=== PATIENT | male | born 1945 | race Caucasian/White ===

== ENCOUNTER → 2019-08-13 10:38 | Outpatient (CLI) | payer MEDICARE, SELFPAY ==
--- NOTE | 2019-08-13 10:43 | XR_ITS ---
PROCEDURE: XR HIP LT 2-3V W/PELVIS CLINICAL INDICATION: LT HIP PAIN Left hip pain COMPARISON: No exams were available for comparison FINDINGS: No acute fracture or dislocation. There are mild osteoarthritic changes of the hips and there is degenerative disc disease in the lower lumbar spine. There is generalized vascular calcification. AP and abduction views of the left hip show mild osteoarthritis. No acute fracture or dislocation IMPRESSION: Mild osteoarthritis of the hips Dictated by: Jian Bravo MD 08/13/2019 12:18 Electronically signed by Jian Bravo MD in [place] 08/13/2019 12:18
== END ==
PROVIDERS: PCP Family Medicine; Visit Provider Family Medicine
DX: M25.552 Pain in left hip (principal)
CPT/HCPCS: 73502

== ENCOUNTER → 2021-03-15 12:13 | Outpatient (CLI) | payer MEDICARE, OTHER, SELFPAY | PROVIDERS: PCP Family Medicine; Visit Provider Nurse Practitioner | DX: U07.1 COVID-19 (principal) | CPT/HCPCS: C9803; U0003; U0005 ==

== ENCOUNTER 2021-10-21 10:43 | Emergency (ER) | payer OTHER, SELFPAY ==
[2021-10-21 11:00] VITALS: BP 131/74; PULSE 81; RESP 16; TEMP 36.8; O2SAT 96; BMI 28.1
--- NOTE | 2021-10-21 11:12 | HMH.EDUTC ---
[place] Disposition Clinical Impression: Bug bite Qualifiers: Encounter type: initial encounter Qualified Code(s): W57.XXXA - Bitten or stung by nonvenomous insect and other nonvenomous arthropods, initial encounter Disposition: Home, Self-Care Condition on Discharge: Good Instructions: DI for Insect Bites and Stings Additional Instructions: monitor for fever if no improvement return or be seen in ed Prescriptions: Mupirocin [Bactroban 2% Ointment 22gm tube] 1 applicatio TP BID 5 Days #22 gm Transmission Status: Pending to [id number] cephALEXin [Cephalexin 500mg Tab] 500 mg PO BID 7 Days #14 tab Transmission Status: Pending to [id number] Referrals: Cordell Pozo MD [Primary Care Provider] - Time of Disposition: 11:23 Medical Decision Making - [place] Inquiry Pt receiving controlled substance: No Vital Signs: 10/21/21 11:00 Temperature 98.2 F Temperature Source Oral Pulse Rate [Left Brachial] 81 Respiratory Rate 16 Blood Pressure [Left Arm] 131/74 Blood Pressure Mean [Left Arm] 93 Blood Pressure Source [Left Arm] Automatic Cuff Blood Pressure Position [Left Arm] Sitting 02 Sat by Pulse Oximetry 96 Oxygen Delivery Method Room Air [place] HPI - General Chief complaint: Urgent Treatment Center Stated complaint: bug bites Time Seen by Provider: 10/21/21 11:12 Mode of Arrival: Ambulatory Source of Information: Patient Limitations: No Limitations Description of Symptoms (Recalled from Triage Doc. by RN): PATIENT C/O BUG BITES TO BILATERAL LEGS X 4 DAYS HEENT Symptoms (Recalled from RN notes): No Resp Symptoms (Recalled from RN notes): No Skin Symptoms (Recalled from RN notes): Yes MS Symptoms (Recalled from RN notes): No Functional Status (Recalled from RN notes): WNL - History of Present Illness Provider Complaint: 76 yr old male presnets for 5 bug bites, 2 to both lower legs and one to chest. pt states he has been out working in the yard and worries he might have lyme disease. pt states he has not removed any ticks or felt anything bite him - Related Data Home Medications Medication Instructions Recorded Confirmed ascorbic acid (vitamin C) 1,000 mg 1 g PO Q6H 08/19/19 08/19/19 tablet aspirin 81 mg tablet,delayed 81 mg PO DAILY 08/19/19 08/19/19 release cholecalciferol (vitamin D3) 125 125 mcg PO DAILY 08/19/19 08/19/19 mcg (5,000 unit) capsule finasteride 5 mg tablet 5 mg PO DAILY 08/19/19 08/19/19 lisinopril 20 mg tablet 20 mg PO DAILY 08/19/19 08/19/19 simvastatin 40 mg tablet 40 mg PO DAILY 08/19/19 08/19/19 tamsulosin 0.4 mg capsule 0.4 mg PO DAILY 08/19/19 08/19/19 Previous Rx's Medication Instructions Recorded Mupirocin [Bactroban 2% Ointment 1 applicatio TP BID 5 Days #22 gm 10/21/21 22gm tube] cephALEXin [Cephalexin 500mg Tab] 500 mg PO BID 7 Days #14 tab 10/21/21 Allergies Allergy/AdvReac Type Severity Reaction Status Date / Time No Known Allergies Allergy Verified 08/19/19 09:16 - Worker's Comp Is this a Worker's Comp case?: No [facility] History - Hepatitis A Screen Attestation statement:: This patient has been screened for Hepatitis A risk factors. I have reviewed the patient's past medical history: Yes Medical History: Reports:: Hypertension Other Medical History: Reports: Arthritis Laterality Cases: Bilateral: Tonsillectomy Other Surgeries: Yes: Appendectomy, Colonoscopy - Social History Smoking Status: Never smoker Alcohol Intake: never Occupational Status: retired Family Hx:: No significant family history ROS Obtained: Yes Systems reviewed as appropriate & no additional complaints - Constitutional Constitutional: Reports system reviewed and no additional complaints, except as docu, Denies fever(s) - Eyes Eyes: Reports system reviewed and no additional complaints, except as docu, Denies dry eyes - ENT Ears, Nose, Mouth, and Throat: Reports system reviewed and no additional complaints, except as docu, Den
[2021-10-21 11:22] VITALS: BP 131/74; PULSE 81; RESP 16; TEMP 36.8; O2SAT 96
== END 2021-10-21 11:26 | disposition home or self-care (01) ==
PROVIDERS: Emergency Provider Nurse Practitioner Family; PCP Family Medicine
DX: S80.862A Insect bite (nonvenomous), left lower leg, initial encounter (principal); S80.861A Insect bite (nonvenomous), right lower leg, initial encounter; W57.XXXA Bitten or stung by nonvenomous insect and other nonvenomous arthropods, initial encounter; I10 Essential (primary) hypertension
CPT/HCPCS: 99212; G0463

== ENCOUNTER 2022-02-26 16:09 | Emergency (ER) | payer OTHER, SELFPAY ==
[2022-02-26 16:09] VITALS: BP 147/75; PULSE 74; RESP 16; TEMP 36.8; O2SAT 98; BMI 28.0
--- NOTE | 2022-02-26 17:04 | HMH.EDGENADL ---
Discharge Plan Disposition Patient Disposition: Home, Self-Care Condition: Good Chief Complaint: Weakness Prescriptions Prescriptions: No Action simvastatin 40 mg tablet 40 mg PO DAILY lisinopril 20 mg tablet 20 mg PO DAILY finasteride 5 mg tablet 5 mg PO DAILY tamsulosin 0.4 mg capsule 0.4 mg PO DAILY aspirin [Adult Aspirin Regimen] 81 mg tablet,delayed release (DR/EC) 81 mg PO DAILY cholecalciferol (vitamin D3) 125 mcg (5,000 unit) capsule 125 mcg PO DAILY ascorbic acid (vitamin C) 1,000 mg tablet 1 g PO Q6H cephalexin 500 MG tablet 500 mg PO BID 7 Days Qty: 14 0RF mupirocin 22 GM ointment 1 applicatio TP BID 5 Days Qty: 22 0RF Referrals Follow up/Referrals: Cordell Pozo MD [Primary Care Provider] - See instructions Activity Restrictions/Add. Instructions Additional Instructions/Restrictions: [facility] and [facility]. If you have any new or worsening symptoms please return the emergency department. Clinical Impressions Clinical Impression: Acute cervical myofascial strain Instructions Patient Instructions: DI for Cervical Muscle Strain Discharge ED Provider: Reymundo Best Adult HPI General Chief complaint: Weakness Stated complaint: numbness in neck Time Seen by Provider: 02/26/22 16:20 Mode of Arrival: Ambulatory Limitations: No Limitations Description of Symptoms (Recalled from ER Triage Doc. by RN): pt advises he had knee surgery a couple of weeks ago and today while he doing therapy he experienced some numbness in the left side of his neck. Denies any other symptoms at this time, no deficits were noted during inital assessment. MD at bedside History of Present Illness HPI narrative: 76-year-old man who presents with concern for mini stroke stating that while doing PT exercises today. States that he had temporary tingling paresthetic numbness along the lateral neck to the base of the ear that has resolved. Denies headache changes in vision dizziness chest pain shortness of breath or peripheral systemic symptoms. No difficulty speaking or swallowing. He has taken 2 aspirin today. Related Data Home Medications Medication Instructions Recorded Confirmed ascorbic acid (vitamin C) 1,000 mg 1 g PO Q6H 08/19/19 08/19/19 tablet aspirin 81 mg tablet,delayed 81 mg PO DAILY 08/19/19 08/19/19 release (Adult Aspirin Regimen) cholecalciferol (vitamin D3) 125 125 mcg PO DAILY 08/19/19 08/19/19 mcg (5,000 unit) capsule finasteride 5 mg tablet 5 mg PO DAILY 08/19/19 08/19/19 lisinopril 20 mg tablet 20 mg PO DAILY 08/19/19 08/19/19 simvastatin 40 mg tablet 40 mg PO DAILY 08/19/19 08/19/19 tamsulosin 0.4 mg capsule 0.4 mg PO DAILY 08/19/19 08/19/19 Previous Rx's Medication Instructions Recorded cephalexin 500 mg tablet 500 mg PO BID 7 days #14 tabs 10/21/21 mupirocin 2 % topical ointment 1 applicatio topical BID 5 days 10/21/21 ##22 Allergies Allergy/AdvReac Type Severity Reaction Status Date / Time No Known Allergies Allergy Verified 08/19/19 09:16 [facility] Social History Smoking Status: Never smoker alcohol intake: never current occupational status: retired Travel in the last 8 weeks: None ROS Obtained: Yes Systems reviewed as appropriate & no additional complaints except as documented Physical Exam General General appearance: alert and in no apparent distress Head Head exam: atraumatic and normocephalic ENT ENT exam: Present mucous membranes moist Neck Neck exam: Present trachea midline and other (No bruit) Chest Chest inspection: Present normal inspection and symmetric chest wall rise Respiratory Respiratory exam: Absent respiratory distress Cardiovascular Cardiovascular exam: Present regular rate Abdominal Exam Abdominal exam: Absent distention Neurological Exam
--- NOTE | 2022-02-26 17:07 | PC.NURSE ---
[facility]
[2022-02-26 17:24] VITALS: BP 140/72; PULSE 72; RESP 18; TEMP 36.6; O2SAT 99
== END 2022-02-26 17:31 | disposition home or self-care (01) ==
PROVIDERS: Emergency Provider Student in an Organized Health Care Education/Training Program; PCP Family Medicine
DX: R53.1 Weakness (principal); S16.1XXA Strain of muscle, fascia and tendon at neck level, initial encounter; R20.2 Paresthesia of skin; Z79.82 Long term (current) use of aspirin; Z79.899 Other long term (current) drug therapy
CPT/HCPCS: 99282

== ENCOUNTER 2024-02-07 17:36 | Emergency (ER) | payer OTHER, SELFPAY ==
[2024-02-07 17:38] VITALS: BP 156/79; PULSE 99; RESP 20; TEMP 36.8; O2SAT 99; BMI 29.4
--- NOTE | 2024-02-07 18:07 | PC.NURSE ---
Jean Claude [facility] at BS for pt adelaideal
--- NOTE | 2024-02-07 18:12 | XR_ITS ---
PROCEDURE INFORMATION: Exam: XR Chest Exam date and time: 02/07/2024 6:31 PM Age: 78 years old Clinical indication: Shortness of breath; Additional info: Chills and rigors TECHNIQUE: Imaging protocol: Radiologic exam of the chest. Views: 1 view. COMPARISON: No relevant prior studies available. FINDINGS: Lungs: Unremarkable. No consolidation. Pleural spaces: Unremarkable. No pleural effusion. No pneumothorax. Heart/Mediastinum: Unremarkable. No cardiomegaly. Bones/joints: Unremarkable. IMPRESSION: No acute findings.
--- NOTE | 2024-02-07 18:15 | ED_ITS ---
Discharge Plan Disposition Patient Disposition: Home, Self-Care Condition: Good Prescriptions Prescriptions: No Action simvastatin 40 mg tablet 40 mg PO DAILY lisinopril 20 mg tablet 20 mg PO DAILY finasteride 5 mg tablet 5 mg PO DAILY tamsulosin 0.4 mg capsule 0.4 mg PO DAILY aspirin [Adult Aspirin Regimen] 81 mg tablet,delayed release (DR/EC) 81 mg PO DAILY cholecalciferol (vitamin D3) 125 mcg (5,000 unit) capsule 125 mcg PO DAILY ascorbic acid (vitamin C) 1,000 mg tablet 1 g PO Q6H cephalexin 500 MG tablet 500 mg PO BID 7 Days Qty: 14 0RF mupirocin 22 GM ointment 1 applicatio TP BID 5 Days Qty: 22 0RF Referrals Follow up/Referrals: Cordell Pozo MD [Primary Care Provider] - See instructions Terrence Kiran MD [Staff Physician] - See instructions Activity Restrictions/Add. Instructions Additional Instructions/Restrictions: Return to the emergency department for any worsening signs or symptoms, any chest pain shortness of breath, please return to the emergency department. [facility] and tongue and groove machine feeder as directed Clinical Impressions Clinical Impression: Brugada syndrome, Parkinson's disease, Parkinsonian tremor, Chills (without fever) Instructions Patient Instructions: DI for Parkinson Disease Print Language Print Language: Austrian Discharge ED Provider: Les Hooks General Adult HPI <WON Smith - Last Filed: 02/07/24 20:23> General Chief complaint: Recheck/Abnormal Lab/Rx Stated complaint: Shakes, weakness, chills Time Seen by Provider: 02/07/24 17:53 Mode of Arrival: Ambulatory Source of Information: Patient and Spouse Limitations: No Limitations History of Present Illness HPI narrative: 78-year-old male presents emergency department accompanied by his spouse, for a episode of shaking and chills . This started around 3 PM today, patient does have past medical history consistent with Parkinson's disease, is on carbidopa levodopa therapy, however missed his afternoon dose of medication today. He tells me that this episode of shaking is the worst I have ever had , thus prompted his emergency department visit. Patient denies any fever, however at the bedside states that his temperature that was taken this afternoon was 97 ?F , he denies any chest pain shortness of breath nausea vomiting constipation, diarrhea, urinary type symptomatology, denies hematemesis melena, hematochezia, headache, dizziness. Patient has ongoing right upper extremity pill-rolling tremor that coincides with ongoing Parkinson's disease. Other past medical history consistent with hyperlipidemia, hypertension, BPH patient is a former smoker, denies any alcohol or drug use initial triage vitals are grossly unremarkable. Onset (ago): hour(s) Related Data Home Medications ?Medication ?Instructions ?Recorded ?Confirmed ascorbic acid (vitamin C) 1,000 mg 1 g PO Q6H 08/19/19 08/19/19 tablet aspirin 81 mg tablet,delayed 81 mg PO DAILY 08/19/19 08/19/19 release (Adult Aspirin Regimen) cholecalciferol (vitamin D3) 125 125 mcg PO DAILY 08/19/19 08/19/19 mcg (5,000 unit) capsule finasteride 5 mg tablet 5 mg PO DAILY 08/19/19 08/19/19 lisinopril 20 mg tablet 20 mg PO DAILY 08/19/19 08/19/19 simvastatin 40 mg tablet 40 mg PO DAILY 08/19/19 08/19/19 tamsulosin 0.4 mg capsule 0.4 mg PO DAILY 08/19/19 08/19/19 Previous Rx's ?Medication ?Instructions ?Recorded cephalexin 500 mg tablet 500 mg PO BID 7 days #14 tabs 10/21/21 mupirocin 2 % topical ointment 1 applicatio topical BID 5 days 10/21/21 ##22 Allergies Allergy/AdvReac Type Severity Reaction Status Date / Time No Known Allergies Allergy Verified 08/19/19 09:16 [facility] <WON Smith - Last Filed: 02/07/24 20:23> [facility] Disclaimer: The information contained in this section may have been updated after the patient was seen, as this information can be updated by other users. Social History Smoking Status: Former smoker alcohol intake: never current occupational status: retired Travel in the last 8 weeks: None Other Medical History Have you received the Pneumonia Vaccine: Yes <WON Smith - Last Filed: 02/07/24 20:23> ROS Obtained: Yes All systems reviewed & no additional complaints except as documented Physical Exam <WON Smith - Last Filed: 02/07/24 20:23> General General appearance: alert and in no apparent distress Head Head exam: atraumatic and normocephalic Eye Eye exam: Present PERRL and EOMI ENT ENT exam: Present mucous membranes moist Neck Neck exam: Present normal inspection Chest Chest inspection: Present normal inspection and symmetric chest wall rise Respiratory Respiratory exam: Present normal lung sounds bilaterally; Absent respiratory distress Cardiovascular Cardiovascular exam: Present regular rate and normal rhythm Abdominal Exam Abdominal exam: Present soft; Absent tenderness, guarding, rebound or rigidity Extremities Exam Extremities exam: Present normal inspection, joint swelling and other (Patient has some joint swelling, with 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 Screening: Per USPSTF and CDC recommendations, given the prevalence of disease in our region, it is our hospital?s policy to screen for HIV and viral Hepatitis for all patients aged 18 and over and those with ongoing risk factors. Gilberto Inquiry Pt receiving controlled substance: No Vital Signs: 02/07/24 17:38 02/07/24 18:31 02/07/24 19:00 Temperature 98.2 F Temperature Source Oral Pulse Rate 87 85 Pulse Rate [Right] 99 H Respiratory Rate 20 15 17 Blood Pressure 167/96 H 159/79 H Blood Pressure [Right Arm] 156/79 H Blood Pressure Mean 115 Blood Pressure Mean [Right Arm] 104 Blood Pressure Source Blood Pressure Source [Right Arm] Automatic Cuff Blood Pressure Position 02 Sat by Pulse Oximetry 99 94 L 96 Oxygen Delivery Method Room Air Room Air 02/07/24 19:30 02/07/24 20:00 02/07/24 20:29 Temperature 97.9 F Temperature Source Oral Pulse Rate 83 86 82 Pulse Rate [Right] Respiratory Rate 13 15 18 Blood Pressure 147/73 H 142/70 H 142/70 H Blood Pressure [Right Arm] Blood Pressure Mean Blood Pressure Mean [Right Arm] Blood Pressure Source Automatic Cuff Blood Pressure Source [Right Arm] Blood Pressure Position Supine 02 Sat by Pulse Oximetry 96 Oxygen Delivery Method Room Air Lab Data Lab results reviewed: Yes I reviewed the patient's lab results. Lab Results 02/07/24 17:50: WBC 16.0 H, RBC 5.21, Hgb 16.1, Hct 47.5, MCV 91.0, MCH 30.9, MCHC 33.9, RDW 14.2, Plt Count 173, MPV 11.2 H, Neut % (Auto) 88.2 H, Lymph % (Auto) 3.9 L, Boundary % (Auto) 4.8, Eos % (Auto) 2.3, Baso % (Auto) 0.7, Neut # (Auto) 14.1 H, Lymph # (Auto) 0.6 L, Boundary # (Auto) 0.8, Eos # (Auto) 0.4, Baso # (Auto) 0.1, Total Counted 100, Neutrophils % (Manual) 84 H, Lymphocytes % (Manual) 9 L, Monocytes % (Manual) 4, Eosinophils % (Manual) 3, Platelet Estimate Normal, RBC Morphology Normal, PT 10.7, INR 0.95, Sodium 132 L, P otassium 5.2 H, Chloride 101, Carbon Dioxide 21 L, Anion Gap 15.2 H, BUN 19, Creatinine 1.00, Estimated Creat Clear 79, Estimated GFR 72, Est GFR ( Amer) 87, Glucose 91, Calcium 9.2, Magnesium 2.0, Total Bilirubin 1.0, AST 53, ALT 27, Alkaline Phosphatase 96, Total Creatine Kinase 128, Troponin I 0.02, NT-Pro-B Natriuret Pep 119, Total Protein 8.7 H, Albumin 4.8, Globulin 3.9 H, Albumin/Globulin Ratio 1.2 02/07/24 18:22: SARS-CoV-2 (PCR) Not detected, Influenza A Untype (PCR) Not detected, Influenza Type B (PCR) Not detected 02/07/24 20:03: Urine Color Yellow, Urine Appearance Clear, Urine pH 6.0, Ur Specific Monroe 1.025, Urine Protein Negative, Urine Glucose (UA) Negative, Urine Ketones Negative, Urine Blood Negative, Urine Nitrate Negative, Urine Bilirubin Negative, Urine Urobilinogen 1.0, Ur Leukocyte Esterase Negative, Urine RBC 10-20, Urine WBC Occasional, Ur Squamous Epith Cells 3-5, Urine Bacteria Trace, Urine Mucus 3+ 02/07/24 17:50 02/07/24 17:50 Orders (Tests/Meds): ED MEDICATIONS Discontinued Medications Generic Name Dose Route Start Last Admin Trade Name Freq PRN Reason Stop Dose Admin Aspirin 325 mg 02/07/24 18:44 02/07/24 18:49 Aspirin 325mg Tablet PO 02/07/24 18:45 Not Given ONCE ONE Aspirin 324 mg 02/07/24 18:48 02/07/24 18:49 Aspirin 81mg Chewable Tablet PO 02/07/24 18:49 324 mg ONCE ONE Administration ORDERS Category Date Time Status XR chest portable Stat Exams 02/07/24 18:12 Completed CK [Creatine Kinase] Stat Lab 02/07/24 17:50 Completed Complete Blood Count Auto Diff Stat Lab 02/07/24 17:50 Completed Comprehensive Metabolic Panel Stat Lab 02/07/24 17:50 Completed Magnesium Stat Lab 02/07/24 17:50 Completed NT Pro Brain Natriuretic Pep. Stat Lab 02/07/24 17:50 Completed PT INR [Prothrombin Time INR] Stat Lab 02/07/24 17:50 Completed Rapid PCR Covid and Flu A/B Stat Lab 02/07/24 18:22 Completed Trop I [Troponin I] Stat Lab 02/07/24 17:50 Completed Urinalysis and Microscopic Stat Lab 02/07/24 20:03 Completed Medical Decision Narrative: 78-year-old male presents emergency department with generalized weakness, chills rigors, differential diagnose include but not limited to Parkinson's disease, cardiac arrhythmia, electrolyte disturbance, viral URI, pneumonia, acute UTI, other neuromuscular disorder, medication noncompliance. I discussed patient case with attending physician Dr. Hooks Obtain CBC CMP, EKG, magnesium level, rapid PCR COVID and flu, urinalysis, and chest x-ray. Patient's EKG has some ST elevations, V2, millimeters elevation, will contact the tongue and groove machine feeder and obtain troponin. This could be due to in the setting of the patient's ongoing parkinsonian-like tremor however we will obtain repeat EKG and troponin for further evaluation. Qiana was contacted by the attending physician, no need to activate STEMI/Reforestation Worker currently, continuing to consult, will also add on PT/INR, proBNP and CK, will give 325 mg p.o. aspirin. Repeat EKG still shows some persistent ST elevation, and V2, with some improvement. Patient and spouse adamantly deny any cardiac history, patient adamantly denies any chest pain or shortness of breath currently CBC notable for leukocytosis 16 PT/INR within normal limit Over 19 negative, influenza A and influenza B negative Mild hyponatremia at 132, mild hyperkalemia at 5.2 Troponin within normal limits, proBNP within normal limits I reviewed the patient's chest x-ray along the corresponding radiologic report, there are no acute findings Urinalysis grossly unremarkable, nitrite negative, leukocyte esterase negative. Patient has remained asymptomatic throughout his time in the emergency department, recommend follow-up with neurologist/PCP, recommend cardiology follow-up, patient and family voiced understanding and state that [facility]. Very strict ED return precautions given to the patient family the bedside, these EKG changes are new, however, patient is remains asymptomatic, troponin is normal. He voiced understand agree with current treatment plan/discharge plan. <Les Hooks MD - Last Filed: 02/07/24 22:13> Vital Signs: 02/07/24 17:38 02/07/24 18:31 02/07/24 19:00 Temperature 98.2 F Temperature Source Oral Pulse Rate 87 85 Pulse Rate [Right] 99 H Respiratory Rate 20 15 17 Blood Pressure 167/96 H 159/79 H Blood Pressure [Right Arm] 156/79 H Blood Pressure Mean 115 Blood Pressure Mean [Right Arm] 104 Blood Pressure Source Blood Pressure Source [Right Arm] Automatic Cuff Blood Pressure Position 02 Sat by Pulse Oximetry 99 94 L 96 Oxygen Delivery Method Room Air Room Air 02/07/24 19:30 02/07/24 20:00 02/07/24 20:29 Temperature 97.9 F Temperature Source Oral Pulse Rate 83 86 82 Pulse Rate [Right] Respiratory Rate 13 15 18 Blood Pressure 147/73 H 142/70 H 142/70 H Blood Pressure [Right Arm] Blood Pressure Mean Blood Pressure Mean [Right Arm] Blood Pressure Source Automatic Cuff Blood Pressure Source [Right Arm] Blood Pressure Position Supine 02 Sat by Pulse Oximetry 96 Oxygen Delivery Method Room Air Lab Data Lab Results 02/07/24 17:50: WBC 16.0 H, RBC 5.21, Hgb 16.1, Hct 47.5, MCV 91.0, MCH 30.9, MCHC 33.9, RDW 14.2, Plt Count 173, MPV 11.2 H, Neut % (Auto) 88.2 H, Lymph % (Auto) 3.9 L, Boundary % (Auto) 4.8, Eos % (Auto) 2.3, Baso % (Auto) 0.7, Neut # (Auto) 14.1 H, Lymph # (Auto) 0.6 L, Bound[place] # (Auto) 0.8, Eos # (Auto) 0.4, Baso # (Auto) 0.1, Total Counted 100, Neutrophils % (Manual) 84 H, Lymphocytes % (Manual) 9 L, Monocytes % (Manual) 4, Eosinophils % (Manual) 3, Platelet Estimate Normal, RBC Morphology Normal, PT 10.7, INR 0.95, Sodium 132 L, P otassium 5.2 H, Chloride 101, Carbon Dioxide 21 L, Anion Gap 15.2 H, BUN 19, Creatinine 1.00, Estimated Creat Clear 79, Estimated GFR 72, Est GFR ( Amer) 87, Glucose 91, Calcium 9.2, Magnesium 2.0, Total Bilirubin 1.0, AST 53, ALT 27, Alkaline Phosphatase 96, Total Creatine Kinase 128, Troponin I 0.02, NT-Pro-B Natriuret Pep 119, Total Protein 8.7 H, Albumin 4.8, Globulin 3.9 H, Albumin/Globulin Ratio 1.2 02/07/24 18:22: SARS-CoV-2 (PCR) Not detected, Influenza A Untype (PCR) Not detected, Influenza Type B (PCR) Not detected 02/07/24 20:03: Urine Color Yellow, Urine Appearance Clear, Urine pH 6.0, Ur Specific [place] 1.025, Urine Protein Negative, Urine Glucose (UA) Negative, Urine Ketones Negative, Urine Blood Negative, Urine Nitrate Negative, Urine Bilirubin Negative, Urine Urobilinogen 1.0, Ur Leukocyte Esterase Negative, Urine RBC 10-20, Urine WBC Occasional, Ur Squamous Epith Cells 3-5, Urine Bacteria Trace, Urine Mucus 3+ Orders (Tests/Meds): ED MEDICATIONS Discontinued Medications Generic Name Dose Route Start Last Admin Trade Name Freq PRN Reason Stop Dose Admin Aspirin 325 mg 02/07/24 18:44 02/07/24 18:49 Aspirin 325mg Tablet PO 02/07/24 18:45 Not Given ONCE ONE Aspirin 324 mg 02/07/24 18:48 02/07/24 18:49 Aspirin 81mg Chewable Tablet PO 02/07/24 18:49 324 mg ONCE ONE Administration ORDERS Category Date Time Status XR chest portable Stat Exams 02/07/24 18:12 Completed CK [Creatine Kinase] Stat Lab 02/07/24 17:50 Completed Complete Blood Count Auto Diff Stat Lab 02/07/24 17:50 Completed Comprehensive Metabolic Panel Stat Lab 02/07/24 17:50 Completed Magnesium Stat Lab 02/07/24 17:50 Completed NT Pro Brain Natriuretic Pep. Stat Lab 02/07/24 17:50 Completed PT INR [Prothrombin Time INR] Stat Lab 02/07/24 17:50 Completed Rapid PCR Covid and Flu A/B Stat Lab 02/07/24 18:22 Completed Trop I [Troponin I] Stat Lab 02/07/24 17:50 Completed Urinalysis and Microscopic Stat Lab 02/07/24 20:03 Completed ECG Data Tracing #1: I reviewed this ECG and interpreted as documented below: (EKG at 1826 independently interpreted and significant for what appears to be ST elevation in V1 and V2. J-point elevation with inverted T wave in V1, saddleback ST elevation with J-point elevation in V1 most consistent with Brugada syndrome. CO appears to be within normal limits, QRS narrow at 82,) Tracing #2: I reviewed this ECG and interpreted as documented below: (Repeat EKG 1841, sinus rhythm 85 beats a minute without acute ischemic change. Patient does have J-point elevation ST elevation in V1 and V2 with inverted T waves consistent with Brugada. CO 161, QRS 84, QTc 375. Normal axis) Medical Decision Narrative: 78-year-old male presents emergency department with generalized weakness, chills rigors, differential diagnose include but not limited to Parkinson's disease, cardiac arrhythmia, electrolyte disturbance, viral URI, pneumonia, acute UTI, other neuromuscular disorder, medication noncompliance. I discussed patient case with attending physician Dr. Hooks Obtain CBC CMP, EKG, magnesium level, rapid PCR COVID and flu, urinalysis, and chest x-ray. Patient's EKG has some ST elevations, V2, millimeters elevation, will contact the tongue and groove machine feeder and obtain troponin. This could be due to in the setting of the patient's ongoing parkinsonian-like tremor however we will obtain repeat EKG and troponin for further evaluation. Qiana was contacted by the attending physician, no need to activate STEMI/Reforestation Worker currently, continuing to consult, will also add on PT/INR, proBNP and CK, will give 325 mg p.o. aspirin. Repeat EKG still shows some persistent ST elevation, and V2, with some improvement. Patient and spouse adamantly deny any cardiac history, patient adamantly denies any chest pain or shortness of breath currently CBC notable for leukocytosis 16 PT/INR within normal limit Over 19 negative, influenza A and influenza B negative Mild hyponatremia at 132, mild hyperkalemia at 5.2 Troponin within normal limits, proBNP within normal limits I reviewed the patient's chest x-ray along the corresponding radiologic report, there are no acute findings Urinalysis grossly unremarkable, nitrite negative, leukocyte esterase negative. Patient has remained asymptomatic throughout his time in the emergency department, recommend follow-up with neurologist/PCP, recommend cardiology follow-up, patient and family voiced understanding and state that [facility]. Very strict ED return precautions given to the patient family the bedside, these EKG changes are new, however, patient is remains asymptomatic, troponin is normal. He voiced understand agree with current treatment plan/discharge plan. I was consulted by the TOSHIA, and we discussed the complexity of the problems being addressed. I approved the treatment and management plan for this patient's care in the Emergency Department, thus performing a substantive portion of the medical decision making. Les Hooks MD Critical Care <WON Smith - Last Filed: 02/07/24 20:23> Critical Care Time Critical Care Time: No
--- NOTE | 2024-02-07 18:23 | PC.NURSE ---
provided pt with a urinal. pt aware of need for urine sample.
[2024-02-07 18:25] LABS: Basophils # 0.1 K/mm3 (0-0.2); Basophils % 0.7 % (0.1-2.0); Eosinophils # 0.4 K/mm3 (0.0-0.4); Eosinophils % 2.3 % (0.1-12.0); Hematocrit 47.5 % (42.0-52.0); Hemoglobin 16.1 g/dL (14.1-18.0); Lymphocytes # 0.6 K/mm3 (0.7-4.5); Lymphocytes % 3.9 % (10-50); Mean Corpuscular HGB Conc 33.9 g/dL (31.8-35.4); Mean Corpuscular Hemoglobin 30.9 pg (27.0-31.2); Mean Platelet Volume 11.2 fl (7.4-10.4); Monocytes # 0.8 K/mm3 (0.1-1.0); Monocytes % 4.8 % (1.7-9.3); Neutrophils # 14.1 K/mm3 (1.8-7.8); Neutrophils % 88.2 % (37.0-80.0); Platelet Count 173 K/mm3 (142-424); Red Blood Count 5.21 M/mm3 (4.60-6.20); Red Cell Distribution Width 14.2 % (11.5-17.5)
[2024-02-07 18:26] LABS: Albumin Level 4.8 g/dl (3.5-5.0); Chloride 101 mmol/L (98-107); MANUAL DIFFERENTIAL MANUAL DIFFERENTIAL (MANUAL DIFF); Potassium 5.2 mmoL/L (3.5-5.1); Sodium 132 mmol/L (136-145)
[2024-02-07 18:26] LABS: Coronavirus 19, PCR Not Detected (NotDetected); Influenza A, PCR Not Detected (NotDetected); Influenza B, PCR Not Detected (NotDetected)
--- NOTE | 2024-02-07 18:26 | ECG_ITS ---
APPROVED REPORT Exam: Resting ECG HR:86 bpm ECG Measurements Heart Rate 86 AXES QRSd 82 QRS 52 QT 329 T 58 QTc 372 Conclusion J-point elevation with inverted T wave and saddleback ST elevation with J-point elevation in V2 without reciprocal change. Likely represents Brugada syndrome Electronically signed by : PARMIDNER STORM, 02/07/2024 20:46:17
[2024-02-07 18:28] LABS: Alanine Aminotransferase 27 U/L (12-78); Aspartate Amino Transferase 53 U/L (17-59); Blood Urea Nitrogen 19 mg/dl (9-20); Creatinine Clearance Estimated 79 mL/min (50-200); Estimated Glomerular Filt Rate 72 ml/min (>60); GFR (African American) 87 ML/MIN (>60)
[2024-02-07 18:29] LABS: Albumin/Globulin Ratio 1.2 (1.1-1.8); Alkaline Phosphatase 96 U/L (38-126); Anion Gap 15.2 mEq/L (5-15); Calcium 9.2 mg/dl (8.4-10.2); Carbon Dioxide 21 mmol/L (22.0-30.0); Globulin 3.9 g/dL (1.3-3.2); Glucose 91 mg/dl (74-100); Total Protein,Serum 8.7 g/dl (6.3-8.2)
[2024-02-07 18:31] VITALS: BP 167/96; PULSE 87; RESP 15; O2SAT 94
--- NOTE | 2024-02-07 18:41 | ECG_ITS ---
APPROVED REPORT Exam: Resting ECG HR:85 bpm ECG Measurements Heart Rate 85 AXES NM 165 P 55 QRSd 84 QRS 51 QT 333 T 54 QTc 375 Conclusion Sinus rhythm Brugada pattern Electronically signed by : PARMINDER STORM, 02/07/2024 20:46:36
[2024-02-07 18:46] LABS: Eosinophils % 3 % (0-3); Lymphocytes % 9 % (10-50); Monocytes % 4 % (2-9); Neutrophils % 84 % (42-76); RBC Morphology Normal; Total Cells Counted 100
[2024-02-07 18:47] LABS: Platelet Estimate Normal
[2024-02-07] MEDS: ASPIRIN 81MG CHEWABLE TABLET 324 MG PO (18:49)
[2024-02-07 18:54] LABS: Creatine Kinase 128 U/L (55-170)
[2024-02-07 18:56] LABS: INR 0.95 (0.9-1.1); Prothrombin Time 10.7 seconds (10.1-12.5)
[2024-02-07 19:00] VITALS: BP 159/79; PULSE 85; RESP 17; O2SAT 96
[2024-02-07 19:04] LABS: NT Pro Brain Natriuretic Pep. 119 pg/mL (0-450); Troponin I 0.02 ng/ml (0.00-0.034)
[2024-02-07 19:30] VITALS: BP 147/73; PULSE 83; RESP 13; O2SAT 96
[2024-02-07 20:00] VITALS: BP 142/70; PULSE 86; RESP 15
[2024-02-07 20:06] LABS: Microscopic, Urine URINE MICROSCOPIC (MICROSCOPIC)
[2024-02-07 20:08] LABS: Appearance,Urine CLEAR (Clear); Bilirubin,Urine Negative (Negative); Blood, Urine Negative (Negative); Color,Urine YELLOW (Yellow); Glucose,Urine (UA) Negative (Negative); Ketones,Urine Negative (Negative); Leukocyte Esterase,Urine Negative (Negative); Nitrate,Urine Negative (Negative); Protein,Urine Negative (Negative); Specific Gravity, Urine 1.025 (1.005-1.030)
[2024-02-07 20:29] VITALS: BP 142/70; PULSE 82; RESP 18; TEMP 36.6; O2SAT 98
[2024-02-07 20:37] LABS: WBC,Urine Occasional #/hpf (0-3)
[2024-02-07 20:38] LABS: Bacteria,Urine Trace /lpf; Mucus,Urine 3+ /lpf
== END 2024-02-07 20:35 | disposition home or self-care (01) ==
PROVIDERS: Physician Assistant; Emergency Provider Emergency Medicine; PCP Family Medicine
DX: G20.C Parkinsonism, unspecified (principal); I49.8 Other specified cardiac arrhythmias; R53.1 Weakness; R68.83 Chills (without fever)
CPT/HCPCS: 71045; 80053; 81001; 82550; 83735; 83880; 84484; 85007; 85025; 85027; 85610; 87636; 93005; 99284

== ENCOUNTER 2024-04-19 10:40 | Emergency (ER) | payer OTHER, MEDICARE, SELFPAY ==
[2024-04-19] VITALS (7 sets, daily range): BP systolic 135–184; BP diastolic 71–95; PULSE 67–78; RESP 16; TEMP 36.6; O2SAT 97–100; BMI 28.5
--- NOTE | 2024-04-19 10:48 | ECG_ITS ---
APPROVED REPORT Exam: Resting ECG HR:76 bpm ECG Measurements Heart Rate 76 AXES OK 164 P 52 QRSd 87 QRS 33 QT 352 T 48 QTc 382 Conclusion SINUS RHYTHM POSSIBLE RIGHT VENTRICULAR CONDUCTION DELAY [RSR (QR) IN V1/V2] BORDERLINE ECG UNCONFIRMED REPORT Electronically signed by : VENU CESPEDES, 04/21/2024 07:07:42
--- NOTE | 2024-04-19 10:51 | PC.NURSE ---
Fasting blood sugar 102 at 1051
--- NOTE | 2024-04-19 11:15 | CT_ITS ---
PROCEDURE INFORMATION: Exam: CT Head Without Contrast Exam date and time: 04/19/2024 11:34 AM Age: 78 years old Clinical indication: Altered mental status/memory loss; Additional info: AMS TECHNIQUE: Imaging protocol: Computed tomography of the head without contrast. Radiation optimization: All CT scans at this facility use at least one of these dose optimization techniques: automated exposure control; mA and/or kV adjustment per patient size (includes targeted exams where dose is matched to clinical indication); or iterative reconstruction. COMPARISON: No relevant prior studies available. FINDINGS: Brain: Central and cortical brain atrophy evident, appropriate for patient age. 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 No acute intracranial hemorrhage. Cerebral ventricles: No ventriculomegaly. Paranasal sinuses: Visualized sinuses are unremarkable. No fluid levels. Mastoid air cells: Visualized mastoid air cells are well aerated. Bones: Unremarkable. No acute fracture. Soft tissues: Unremarkable. IMPRESSION: No acute intracranial abnormality.
[2024-04-19 11:21] LABS: Chloride 105 mmol/L (98-107); Sodium 134 mmol/L (136-145)
[2024-04-19 11:21] LABS: Microscopic, Urine URINE MICROSCOPIC (MICROSCOPIC)
[2024-04-19 11:22] LABS: Potassium 4.7 mmoL/L (3.5-5.1)
[2024-04-19 11:24] LABS: Blood Urea Nitrogen 18 mg/dl (9-20); Creatinine Clearance Estimated 79 mL/min (50-200); Estimated Glomerular Filt Rate 72 ml/min (>60); GFR (African American) 87 ML/MIN (>60)
[2024-04-19 11:25] LABS: Anion Gap 9.7 mEq/L (5-15); Calcium 9.1 mg/dl (8.4-10.2); Carbon Dioxide 24 mmol/L (22.0-30.0); Glucose 94 mg/dl (74-100)
--- NOTE | 2024-04-19 11:35 | PC.NURSE ---
Patient is being taken to CT.
--- NOTE | 2024-04-19 11:36 | PC.NURSE ---
pt gone to ct via wheelchair
--- NOTE | 2024-04-19 11:41 | HMH.EDGENADL ---
Discharge Plan Disposition Patient Disposition: Home, Self-Care Condition: Good Prescriptions Prescriptions: No Action simvastatin 40 mg tablet 40 mg PO DAILY lisinopril 20 mg tablet 20 mg PO DAILY finasteride 5 mg tablet 5 mg PO DAILY tamsulosin 0.4 mg capsule 0.4 mg PO DAILY aspirin [Adult Aspirin Regimen] 81 mg tablet,delayed release (DR/EC) 81 mg PO DAILY cholecalciferol (vitamin D3) 125 mcg (5,000 unit) capsule 125 mcg PO DAILY ascorbic acid (vitamin C) 1,000 mg tablet 1 g PO Q6H cephalexin 500 MG tablet 500 mg PO BID 7 Days Qty: 14 0RF mupirocin 22 GM ointment 1 applicatio TP BID 5 Days Qty: 22 0RF Referrals Follow up/Referrals: Cordell Pozo MD [Primary Care Provider] - See instructions Activity Restrictions/Add. Instructions Additional Instructions/Restrictions: Follow-up with your primary care doctor and other specialist as previously arranged. Continue all medications as prescribed. Please call 911 if you have concerns about worsening mental status, any fall/trauma, any other significant concerns about the patient's wellbeing. Clinical Impressions Clinical Impression: Altered mental status Qualifiers: Altered mental status type: disorientation Qualified Code(s): R41.0 - Disorientation, unspecified Instructions Patient Instructions: DI for Altered Mental Status Print Language Print Language: Yemeni Discharge ED Provider: Janel Fitzpatrick Adult HPI General Chief complaint: Altered Mental Status Stated complaint: AMS Time Seen by Provider: 04/19/24 10:43 Mode of Arrival: Ambulatory Source of Information: Patient and Spouse Limitations: No Limitations Description of Symptoms (Recalled from ER Triage Doc. by RN): pt presents to ED with for confusion. reports that this am, they were getting ready for sabianist and pt reports that he was unable to remember how to get to into the car. pt reports that he feels like he can remember the first part of sentence, but the last part he cant remember. [facility] History of Present Illness HPI narrative: Patient is a 78-year-old male presenting with altered mental status. provides history at bedside. She states they were getting ready for [facility]ianist and he became acutely confused with regards to needing to take his pills with him to [facility]. She told him that he did not need to take them and he was okay with that. They then got to the car and she states he was unable to remember how to get into the car. Patient has a history significant for Parkinson's disease and severe anxiety. Patient states he feels less confused at this time and is able to answer all questions appropriately. Patient and deny recent fevers, chills, shortness of breath, chest pain, nausea/vomiting, bowel or bladder dysfunction in the patient. Patient denies recent falls or losing consciousness. Related Data Home Medications ?Medication ?Instructions ?Recorded ?Confirmed ascorbic acid (vitamin C) 1,000 mg 1 g PO Q6H 08/19/19 08/19/19 tablet aspirin 81 mg tablet,delayed 81 mg PO DAILY 08/19/19 08/19/19 release (Adult Aspirin Regimen) cholecalciferol (vitamin D3) 125 125 mcg PO DAILY 08/19/19 08/19/19 mcg (5,000 unit) capsule finasteride 5 mg tablet 5 mg PO DAILY 08/19/19 08/19/19 lisinopril 20 mg tablet 20 mg PO DAILY 08/19/19 08/19/19 simvastatin 40 mg tablet 40 mg PO DAILY 08/19/19 08/19/19 tamsulosin 0.4 mg capsule 0.4 mg PO DAILY 08/19/19 08/19/19 Previous Rx's ?Medication ?Instructions ?Recorded cephalexin 500 mg tablet 500 mg PO BID 7 days #14 tabs 10/21/21 mupirocin 2 % topical ointment 1 applicatio topical BID 5 days 10/21/21 ##22 Allergies Allergy/AdvReac Type Severity Reaction Status Date / Time No Known Allergies Allergy Verified 08/19/19 09:16 [facility] Disclaimer: The information contained in this section may have been updated after the patient was seen, as this information can be updated by other users. Social History Smoking Status: Former smoker alcohol intake: never current occupational status: retired Travel in the last 8 weeks: None Have you lived/traveled outside US in past 30 days?: No Contact w/someone who lives/traveled outside US past 30 days?: No Exposure to someone with infectious disease in past 14 days?: No Do you have a fever (greater than 100.4 F or 38 C)?: No Have you tested positive for COVID-19: No Exposed to someone with COVID-19 in past 14 days?: No Do you have a sore throat?: No Do you have a cough?: No Do you have any weakness?: No Do you have any diarrhea?: No Are you experiencing any unusual bleeding?: No Do you have any muscle aches/pain?: No Do you have any abdominal pain?: No Are you experiencing loss of taste or smell?: No Other Medical History Have you received the Pneumonia Vaccine: Yes ROS Obtained: Yes All systems reviewed & no additional complaints except as documented Physical Exam General General appearance: alert and in no apparent distress Head Head exam: atraumatic, normocephalic and normal inspection Eye Eye exam: Present normal appearance, PERRL and EOMI Respiratory Respiratory exam: Present normal lung sounds bilaterally; Absent respiratory distress Cardiovascular Cardiovascular exam: Present regular rate and normal rhythm; Absent JVD Abdominal Exam Abdominal exam: Present soft and normal bowel sounds; Absent distention, tenderness or guarding Extremities Exam Extremities exam: Present normal inspection, full ROM and normal capillary refill; Absent calf tenderness Neurological Exam Neurological exam: Present alert, oriented X3 and CN II-XII intact; Absent motor sensory deficit Psychiatric Psychiatric exam: Present normal affect and normal mood Medical Decision Making Medical Records Screening: Per USPSTF and CDC recommendations, given the prevalence of disease in our region, it is our hospital?s policy to screen for HIV and viral Hepatitis for all patients aged 18 and over and those with ongoing risk factors. Gilberto Inquiry Pt receiving controlled substance: No Vital Signs: 04/19/24 10:42 04/19/24 11:17 04/19/24 11:30 Temperature 97.8 F Temperature Source Oral Pulse Rate 72 70 Pulse Rate [Left Radial] 78 Respiratory Rate 16 Blood Pressure 144/73 H 138/76 Blood Pressure [Right Arm] 165/77 H Blood Pressure Mean [Right Arm] 106 02 Sat by Pulse Oximetry 100 99 98 Oxygen Delivery Method Room Air Room Air 04/19/24 12:00 04/19/24 12:31 04/19/24 12:38 Temperature Temperature Source Pulse Rate 67 68 69 Pulse Rate [Left Radial] Respiratory Rate Blood Pressure 135/71 184/94 H 157/85 H Blood Pressure [Right Arm] Blood Pressure Mean [Right Arm] 02 Sat by Pulse Oximetry 97 99 100 Oxygen Delivery Method Room Air Room Air Room Air Lab Data Lab Results 04/19/24 10:53: WBC 9.8, RBC 5.04, Hgb 15.1, Hct 46.0, MCV 91.3, MCH 30.0, MCHC 32.8, RDW 13.7, Plt Count 202, MPV 11.7 H, Neut % (Auto) 82.6 H, Lymph % (Auto) 7.7 L, [place] % (Auto) 6.4, Eos % (Auto) 2.5, Baso % (Auto) 0.4, Neut # (Auto) 8.1 H, Lymph # (Auto) 0.8, [place] # (Auto) 0.6, Eos # (Auto) 0.2, Baso # (Auto) 0.0, Sodium 134 L, Potassium 4.7, Chloride 105, Carbon Dioxide 24, Anion Gap 9.7, BUN 18, Creatinine 1.00, Estimated Creat Clear 79, Estimated GFR 72, Est GFR ( Amer) 87, Glucose 94, Calcium 9.1 04/19/24 11:15: Urine Color Dark yellow, Urine Appearance Slightly cloudy, Urine pH 6.0, Ur Specific [place] 1.020, Urine Protein Negative, Urine Glucose (UA) Negative, Urine Ketones Negative, Urine Blood Negative, Urine Nitrate Negative, Urine Bilirubin Negative, Urine Urobilinogen 0.2, Ur Leukocyte Esterase Negative, Urine RBC None, Urine WBC Occasional, Ur Squamous Epith Cells Occasional, Urine Bacteria Trace 04/19/24 10:53 04/19/24 10:53 Orders (Tests/Meds): ORDERS Category Date Time Status CT head/brain wo con Stat Cat Scan 04/19/24 11:15 Completed BMP [Basic Metabolic Panel] Stat Lab 04/19/24 10:53 Completed CBC w/Auto Diff [Complete Blood Count Auto Diff] Stat Lab 04/19/24 10:53 Completed HIV Combo Stat Lab 04/19/24 10:53 Received Hep C Ab with Reflex to RNA Stat Lab 04/19/24 10:53 Received Urinalysis and Microscopic Stat Lab 04/19/24 11:15 Completed Medical Decision Narrative: Patient is a 78-year-old male presenting with altered mental status. Patient arrives to the ED with normal mentation and no confusion. Differential diagnosis includes but is not limited to, stroke, seizure, TIA, Parkinson's, ACS, arrhythmia, UTI, among others. Patient has no neurologic deficits on exam and is back to his neurologic baseline. Patient complaining of no pre-existing infectious symptoms, chest pain, difficulty breathing. Patient evaluated with CT head without contrast, urinalysis, CBC and CMP. Patient's workup negative for leukocytosis, anemia, thrombocytopenia. No evidence of electrolyte abnormalities found today. Patient's urinalysis also negative for acute cystitis. Patient CT head personally reviewed by me and negative for acute hemorrhage or infarct, age-related volume loss noted. Patient's EKG did not demonstrate QTc prolongation, new arrhythmia, significant ST elevation/depression or evidence of acute ischemia. 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 Given that patient is back to his baseline, and an unremarkable workup, life-threatening causes of the patient's symptoms are unlikely. Patient and his [facility]. All test results discussed with the patient and his at bedside. Patient and in agreement with discharge at this time. Janel Fitzpatrick MD PGY-3, Emergency Medicine Critical Care Critical Care Time Critical Care Time: No
--- NOTE | 2024-04-19 11:43 | PC.NURSE ---
pt arrived back to room
[2024-04-19 11:55] LABS: Bilirubin,Urine Negative (Negative); Blood, Urine Negative (Negative); Glucose,Urine (UA) Negative (Negative); Ketones,Urine Negative (Negative); Leukocyte Esterase,Urine Negative (Negative); Nitrate,Urine Negative (Negative); Protein,Urine Negative (Negative); Urobilinogen,Urine 0.2 EU/dl (0.2)
[2024-04-19 11:57] LABS: Appearance,Urine Slightly Cloudy (Clear); Color,Urine Dark Yellow (Yellow)
[2024-04-19 12:03] LABS: Hemoglobin 15.1 g/dL (14.1-18.0); Mean Corpuscular HGB Conc 32.8 g/dL (31.8-35.4); Mean Corpuscular Volume 91.3 fl (80-94); Platelet Count 202 K/mm3 (142-424); Red Blood Count 5.04 M/mm3 (4.60-6.20); Red Cell Distribution Width 13.7 % (11.5-17.5); White Blood Count 9.8 K/mm3 (4.8-10.8)
[2024-04-19 12:04] LABS: Basophils % 0.4 % (0.1-2.0); Eosinophils # 0.2 K/mm3 (0.0-0.4); Eosinophils % 2.5 % (0.1-12.0); Lymphocytes # 0.8 K/mm3 (0.7-4.5); Lymphocytes % 7.7 % (10-50); Mean Platelet Volume 11.7 fl (7.4-10.4); Monocytes # 0.6 K/mm3 (0.1-1.0); Monocytes % 6.4 % (1.7-9.3); Neutrophils # 8.1 K/mm3 (1.8-7.8); Neutrophils % 82.6 % (37.0-80.0)
[2024-04-19 12:21] LABS: Bacteria,Urine Trace /lpf; Squamous Epithelial Cell,Urine Occasional #/hpf (0-5); WBC,Urine Occasional #/hpf (0-3)
[2024-04-19 13:41] LABS: HIV Combo NEGATIVE (Negative)
[2024-04-20 10:08] LABS: HCV Ab Non Reactive (Non Reactive)
== END 2024-04-19 13:28 | disposition home or self-care (01) ==
PROVIDERS: Emergency Provider Student in an Organized Health Care Education/Training Program; PCP Family Medicine
DX: R41.82 Altered mental status, unspecified (principal)
CPT/HCPCS: 70450; 80048; 81001; 85025; 86803; 87389; 93005; 99284

== ENCOUNTER 2024-07-09 19:11 | Emergency (ER) | payer MEDICARE, OTHER, SELFPAY ==
[2024-07-09 19:46] VITALS: BP 187/91; PULSE 82; RESP 18; TEMP 36.4; O2SAT 97; BMI 28.5
[2024-07-09 19:47] VITALS: BP 183/84; PULSE 76; RESP 18; TEMP 36.8; O2SAT 95
--- NOTE | 2024-07-09 19:56 | ECG_ITS ---
APPROVED REPORT Exam: Resting ECG HR:82 bpm ECG Measurements Heart Rate 82 AXES MA 136 P -45 QRSd 93 QRS 51 QT 362 T 48 QTc 401 Conclusion ECTOPIC ATRIAL RHYTHM POSSIBLE RIGHT VENTRICULAR CONDUCTION DELAY [RSR (QR) IN V1/V2] ABNORMAL RHYTHM ECG Electronically signed by : NICHOLE ENRIQUEZ, 07/10/2024 10:24:46
--- NOTE | 2024-07-09 20:07 | ED_ITS ---
Discharge Plan Disposition Patient Disposition: Home, Self-Care Chief Complaint: Recheck/Abnormal Lab/Rx Prescriptions Prescriptions: No Action simvastatin 40 mg tablet 40 mg PO DAILY lisinopril 20 mg tablet 20 mg PO DAILY finasteride 5 mg tablet 5 mg PO DAILY tamsulosin 0.4 mg capsule 0.4 mg PO DAILY aspirin [Adult Aspirin Regimen] 81 mg tablet,delayed release (DR/EC) 81 mg PO DAILY cholecalciferol (vitamin D3) 125 mcg (5,000 unit) capsule 125 mcg PO DAILY ascorbic acid (vitamin C) 1,000 mg tablet 1 g PO Q6H cephalexin 500 MG tablet 500 mg PO BID 7 Days Qty: 14 0RF mupirocin 22 GM ointment 1 applicatio TP BID 5 Days Qty: 22 0RF Referrals Follow up/Referrals: Cordell Pozo MD [Primary Care Provider] - See instructions Activity Restrictions/Add. Instructions Additional Instructions/Restrictions: Talk to family doctor about potentially altering your medications. Lisinopril can be a shorter acting drug, something like losartan or candesartan can provide longer acting relief if you are having blood pressure spikes near the end of your doses. Call your family doctor to establish care for this visit to the emergency department and schedule follow-up within 48 hours to ensure improvement. If you have any worsening of your condition or any other concerning signs or symptoms, return to the emergency department or your primary care doctor for further evaluation. Clinical Impressions Clinical Impression: Hypertension Print Language Print Language: Arabic Discharge ED Provider: Les Hooks General Adult HPI General Chief complaint: Recheck/Abnormal Lab/Rx Stated complaint: HBP 197/81 Time Seen by Provider: 07/09/24 19:44 Mode of Arrival: Ambulatory Source of Information: Patient Description of Symptoms (Recalled from ER Triage Doc. by RN): Pt to ED with c/o high blood pressure and nausea. Pt reports he took 20mg lisinopril at 1200 today and 10mg lisinopril @ 1830 today. Pt denies any other symptoms. History of Present Illness HPI narrative: Please note that above description of symptoms, in this electronic medical record under categorization of recalled from ER triage doctor by RN are reflective of an initial nursing assessment, however, is not reflective of my full history and physical exam that was personally taken and clarified. Consequentially, this preceding description of symptoms, which may include the patient's categorized chief complaint in the EMR, do not reflect my personal clinical impression, and the ultimate description of history of present illness and patient stated complaints should be deferred to this section of the note. Unless stated otherwise or congruent with this section of the note, additional signs, symptoms, or incongruence should be interpreted as inaccurate with my clinical impression. Related Data Home Medications ?Medication ?Instructions ?Recorded ?Confirmed ascorbic acid (vitamin C) 1,000 mg 1 g PO Q6H 08/19/19 08/19/19 tablet aspirin 81 mg tablet,delayed 81 mg PO DAILY 08/19/19 08/19/19 release (Adult Aspirin Regimen) cholecalciferol (vitamin D3) 125 125 mcg PO DAILY 08/19/19 08/19/19 mcg (5,000 unit) capsule finasteride 5 mg tablet 5 mg PO DAILY 08/19/19 08/19/19 lisinopril 20 mg tablet 20 mg PO DAILY 08/19/19 08/19/19 simvastatin 40 mg tablet 40 mg PO DAILY 08/19/19 08/19/19 tamsulosin 0.4 mg capsule 0.4 mg PO DAILY 08/19/19 08/19/19 Previous Rx's ?Medication ?Instructions ?Recorded cephalexin 500 mg tablet 500 mg PO BID 7 days #14 tabs 10/21/21 mupirocin 2 % topical ointment 1 applicatio topical BID 5 days 10/21/21 ##22 Allergies Allergy/AdvReac Type Severity Reaction Status Date / Time No Known Allergies Allergy Verified 08/19/19 09:16 [facility] Disclaimer: The information contained in this section may have been updated after the patient was seen, as this information can be updated by other users. Social History Smoking Status: Former smoker alcohol intake: never current occupational status: retired Travel in the last 8 weeks: None Have you lived/traveled outside US in past 30 days?: No Contact w/someone who lives/traveled outside US past 30 days?: No Exposure to someone with infectious disease in past 14 days?: No Do you have a fever (greater than 100.4 F or 38 C)?: No Have you tested positive for COVID-19: No Exposed to someone with COVID-19 in past 14 days?: No Do you have a sore throat?: No Do you have a cough?: No Do you have any weakness?: No Do you have any diarrhea?: No Are you experiencing any unusual bleeding?: No Do you have any muscle aches/pain?: No Do you have any abdominal pain?: No Are you experiencing loss of taste or smell?: No Other Medical History Have you received the Pneumonia Vaccine: Yes ROS Obtained: Yes All systems reviewed & no additional complaints except as documented Physical Exam General General appearance: alert Head Head exam: atraumatic and normocephalic Eye Eye exam: Present normal appearance, PERRL and EOMI Neck Neck exam: Present normal inspection, full ROM and trachea midline Respiratory Respiratory exam: Absent respiratory distress, wheezes, stridor, accessory muscle use or prolonged expiratory phase Cardiovascular Cardiovascular exam: Present other (Pulses equal symmetric in upper and lower extremities) Abdominal Exam Abdominal exam: Present soft; Absent distention, tenderness or pulsatile mass Extremities Exam Extremities exam: Absent edema Neurological Exam Neurological exam: Present alert, oriented X3 and CN II-XII intact; Absent motor sensory deficit Skin Skin exam: Present warm and dry; Absent diaphoresis or erythema Medical Decision Making Medical Records Medical records reviewed: Yes I reviewed the patient's medical records. Screening: Per USPSTF and CDC recommendations, given the prevalence of disease in our region, it is our hospital?s policy to screen for HIV and viral Hepatitis for all patients aged 18 and over and those with ongoing risk factors. Gilberto Inquiry Pt receiving controlled substance: No Gilberto was queried for this patient: No Vital Signs: 07/09/24 19:46 Temperature 97.5 F L Temperature Source Oral Pulse Rate [Right Radial] 82 Respiratory Rate 18 Blood Pressure [Left Arm] 187/91 H Blood Pressure Mean [Left Arm] 123 Blood Pressure Source [Left Arm] Automatic Cuff Blood Pressure Position [Left Arm] Sitting 02 Sat by Pulse Oximetry 97 Oxygen Delivery Method Room Air Lab Data Lab Results 07/09/24 20:45: WBC 14.9 H, RBC 5.03, Hgb 15.1, Hct 44.6, MCV 88.7, MCH 30.0, MCHC 33.9, RDW 13.0, Plt Count 197, MPV 12.1 H, Neut % (Auto) 90.5 H, Lymph % (Auto) 4.1 L, [place] % (Auto) 4.4, Eos % (Auto) 0.2, Baso % (Auto) 0.3, Neut # (Auto) 13.5 H, Lymph # (Auto) 0.6 L, [place] # (Auto) 0.7, Eos # (Auto) 0.0, Baso # (Auto) 0.1, Sodium 132 L, Potassium 4.2, Chloride 99, Carbon Dioxide 24, Anion Gap 13.2, BUN 15, Creatinine 0.70, Estimated Creat Clear 77, Estimated GFR 109, Est GFR ( Amer) 131, Glucose 133 H, Calcium 9.5, Total Bilirubin 0.5, AST 28, ALT 24, Alkaline Phosphatase 91, Troponin I < 0.01, Total Protein 7.2, Albumin 4.2, Globulin 3.0, Albumin/Globulin Ratio 1.4, Thyroxine (T4) 8.2 07/09/24 20:45 07/09/24 20:45 Orders (Tests/Meds): ED MEDICATIONS Discontinued Medications Generic Name Dose Route Start Last Admin Trade Name Freq PRN Reason Stop Dose Admin Ondansetron HCl 4 mg 07/09/24 20:47 07/09/24 20:49 Ondansetron 4mg Odt SL 07/09/24 20:48 4 mg ONCE ONE Administration ORDERS Category Date Time Status CBC w/Auto Diff [Complete Blood Count Auto Diff] Stat Lab 07/09/24 20:45 Results CMP [Comprehensive Metabolic Panel] Stat Lab 07/09/24 20:45 Results T4 (Thyroxine) Stat Lab 07/09/24 20:45 Results TSH [Thyroid Stimulating Hormone] Stat Lab 07/09/24 20:45 Results Trop I [Troponin I] Stat Lab 07/09/24 20:45 Results Troponin I Q3H Lab 07/09/24 23:15 Ordered Troponin I Q3H Lab 07/10/24 02:15 Ordered Medical Decision Narrative: 79-year-old male presenting with asymptomatic hypertension. Patient states that he has been hypertensive all day, took 1-1/2 lisinopril, pressure still is high, so came in because I do not want to have a stroke. History of hypertension and parkinsonian is him. States that his blood pressure has been fluctuating more recently, but has not followed up with family doctor regarding this more recent hypertension. No chest pain, vomiting, diaphoresis, shortness of breath, swelling in his legs, or any other concerning signs. History was obtained via conversation with patient and family. On arrival, patient hemodynamically stable, alert, oriented x4, appropriate, GCS 15, moving all extremities spontaneously, pupils equal and reactive to light. Full physical exam performed and significant for clinically well-appearing male no acute distress. Loud, blowing right upper sternal border murmur that radiates to the carotids. No other murmurs gallops rubs. No lower extremity edema. Pulses equal and symmetric in upper and lower extremities. Abdomen soft. Neurologically intact, but does have right upper extremity resting tremor. Differential includes hypertension, hypertensive urgency, refractory hypertension, dysautonomia, anxiety, metabolic, among others. Patient placed on continuous cardiac monitoring and continuous pulse ox with initial blood pressure 187/91, heart rate 82, saturation 97% on room air. Independent interpretation of EKG shows sinus rhythm 82 bpm with WI 136, QRS 93, QTc 401. No acute ischemic change. Although patient symptomatic other than nausea at the time, patient does have a loud right upper sternal border murmur and workup was initiated out of abundance of caution. Patient states he has been told he has had this murmur since he was a kid and has never had it worked up any further. Workup independently interpreted and significant for nonactionable CBC or chemistry. Normal kidney function, normal troponin and normal thyroid studies. CT scans of the chest abdomen pelvis were considered, not deemed necessary. Patient has no neurologic deficits, negative workup, no vital sign abnormalities other than hypertension. On reevaluation, patient still resting comfortably. Given patient presentation, workup, history, this most likely represents chronic hypertension versus dysautonomia of parkinsonian is him. I feel this is less likely related to acute life-threatening pathology given workup, physical exam, EKG, and well- appearing/asymptomatic patient overall. Because patient at baseline without signs or symptoms of clinical decompensation, deemed appropriate for discharge. Results were relayed to patient who voiced understanding and were agreeable to outpatient management and follow up. I discussed my clinical impression with patient and answered all questions. At this time, the evidence for any other entities in the differential is insufficient to warrant any further testing or ED observation. This was explained as well. Advisory was given that persistent or worsening symptoms require further evaluation. I confirmed the understanding of this discussion. [employer] disclaimer Much of this encounter note is an electronic mold filler spoken language to printed text. Electronic mold filler of the spoken language may permit errors. Although I have reviewed the note, some errors may still exist. Critical Care Critical Care Time Critical Care Time: No
[2024-07-09 20:15] VITALS: BP 157/74; PULSE 71; RESP 16; TEMP 36.7; O2SAT 94
[2024-07-09] MEDS: ONDANSETRON 4MG ODT 4 MG SL (20:49)
[2024-07-09 21:10] LABS: Basophils # 0.1 K/mm3 (0-0.2); Basophils % 0.3 % (0.1-2.0); Eosinophils % 0.2 % (0.1-12.0); Hematocrit 44.6 % (42.0-52.0); Hemoglobin 15.1 g/dL (14.1-18.0); Lymphocytes # 0.6 K/mm3 (0.7-4.5); Lymphocytes % 4.1 % (10-50); Mean Corpuscular HGB Conc 33.9 g/dL (31.8-35.4); Mean Corpuscular Volume 88.7 fl (80-94); Mean Platelet Volume 12.1 fl (7.4-10.4); Monocytes # 0.7 K/mm3 (0.1-1.0); Monocytes % 4.4 % (1.7-9.3); Neutrophils # 13.5 K/mm3 (1.8-7.8); Neutrophils % 90.5 % (37.0-80.0); Platelet Count 197 K/mm3 (142-424); Red Blood Count 5.03 M/mm3 (4.60-6.20); White Blood Count 14.9 K/mm3 (4.8-10.8)
[2024-07-09 21:11] LABS: Alanine Aminotransferase 24 U/L (12-78); Albumin Level 4.2 g/dl (3.5-5.0); Albumin/Globulin Ratio 1.4 (1.1-1.8); Alkaline Phosphatase 91 U/L (38-126); Anion Gap 13.2 mEq/L (5-15); Aspartate Amino Transferase 28 U/L (17-59); Bilirubin,Total 0.5 mg/dl (0.2-1.3); Blood Urea Nitrogen 15 mg/dl (9-20); Calcium 9.5 mg/dl (8.4-10.2); Carbon Dioxide 24 mmol/L (22.0-30.0); Chloride 99 mmol/L (98-107); Creatinine Clearance Estimated 77 mL/min (50-200); Estimated Glomerular Filt Rate 109 ml/min (>60); GFR (African American) 131 ML/MIN (>60); Glucose 133 mg/dl (74-100); Potassium 4.2 mmoL/L (3.5-5.1); Sodium 132 mmol/L (136-145); Total Protein,Serum 7.2 g/dl (6.3-8.2)
[2024-07-09 21:14] LABS: MANUAL DIFFERENTIAL MANUAL DIFFERENTIAL (MANUAL DIFF)
[2024-07-09 21:28] LABS: T4 (Thyroxine) 8.2 ug/dl (5.53-11.0)
[2024-07-09 21:31] VITALS: BP 169/79; PULSE 73; RESP 18; TEMP 36.8; O2SAT 94
[2024-07-09 21:32] LABS: Troponin I < 0.01 ng/ml (0.00-0.034)
[2024-07-09 21:53] LABS: Lymphocytes % 7 % (10-50); Neutrophils % 93 % (42-76); Total Cells Counted 100
[2024-07-09 21:54] LABS: Platelet Estimate Normal; RBC Morphology Normal
[2024-07-09 21:56] VITALS: BP 167/90; PULSE 71; RESP 18; TEMP 36.8; O2SAT 94
== END 2024-07-09 21:59 | disposition home or self-care (01) ==
PROVIDERS: Emergency Provider Emergency Medicine; PCP Family Medicine
DX: I10 Essential (primary) hypertension (principal); R11.0 Nausea; Z87.891 Personal history of nicotine dependence
CPT/HCPCS: 80053; 84436; 84443; 84484; 85007; 85025; 85027; 93005; 99283; Q0162

== ENCOUNTER 2024-07-16 08:03 | Outpatient (CLI) | payer MEDICARE, SELFPAY ==
--- NOTE | 2024-07-16 08:08 | CA_ITS ---
APPROVED REPORT EXAM: Comprehensive 2D, Doppler, and color-flow Echocardiogram Admin Asst: Madalyn Brewer RDCS Ht: 6 ft 0 in Wt: 202lbs BSA: 2.14 BP: 187/91 mmHg Indications: MURMUR,HTN, M-Mode Dimensions RVDd 1.18 cm (0.9-2.6) LA Diam 2.80 cm (1.9-4.0) LVDd 4.47 cm (3.5-5.7) LVDs 2.97 cm (3.5-5.7) IVSd 0.97 cm (0.6-1.1) PWd 0.89 cm (0.6-1.1) EF (Teich) 62.40% FS 33.60% EDV (Teich) 91.00 mL ESV (Teich) 34.20 mL LV Diastology E Decel Time 310 (160-240 msec) E/A Ratio 0.9 Aortic Valve JHONATHAN Index 0.75 cm2/m2 AoV Peak Ramy. 198.0 (50-130 cm/s) AO Peak GR. 15.70 mmHg AO Mean GR. 7.70 (<5 mmHg) AO VTI 32.1 (18-25 cm) JHONATHAN (VTI) 1.65 (2.5-4.5 cm2) Mitral Valve MV E Max Ramy. 81.0 (40-130 cm/s) MV A Velocity 89.0 (40-130 cm/s) E/A Ratio 0.90 MV PHT 91.0 ms Left Ventricle The left ventricle is normal size. The left ventricular systolic function is normal. The left ventricular ejection fraction is within the normal range. There is increased LV wall thickness. There is normal LV segmental wall motion. The left ventricular diastolic function is normal. LVEF is 55%. Right Ventricle The right ventricle is normal size. The right ventricular systolic function is normal. Atria The left atrium size is normal. The right atrium size is normal. There is no Doppler evidence of interatrial shunt. Aortic Valve The aortic valve is mildly thickened. Trace aortic regurgitation. Mild aortic stenosis is present. Peak velocity 2.0 m/s. Mean AV gradient 10 mmHg. Max AV gradient 50 mmHg. JHONATHAN by continuity equation is 1.8 cm2. Mitral Valve The mitral valve is mildly thickened. No evidence of mitral valve stenosis. Trace mitral regurgitation. Tricuspid Valve Tricuspid valve is grossly normal in structure and function. Trace tricuspid regurgitation. There is insufficient TR jet to estimate RVSP. Pulmonic Valve The pulmonary valve is normal in structure. Trace pulmonic regurgitation. Great Vessels The aortic root is normal in size. IVC is normal in size and collapses >50% with inspiration. Pericardium There is no pericardial effusion. Other Information Study Quality: Fair Conclusion Normal biventricular systolic function. Mild (peak velocity 2.0 m/s. Mean AV gradient 10 mmHg. Max AV gradient 50 mmHg. JHONATHAN by continuity equation is 1.8 cm2). Electronically signed by : Johanna Nickerson MD 07/28/2024 21:08:25
== END 2024-07-16 23:59 | disposition home or self-care (01) ==
LOC: RT 08:05
PROVIDERS: PCP Family Medicine; Visit Provider Family Medicine
DX: I35.0 Nonrheumatic aortic (valve) stenosis (principal); R01.1 Cardiac murmur, unspecified; I10 Essential (primary) hypertension
CPT/HCPCS: 93306

== ENCOUNTER 2024-09-24 10:00 | Outpatient (RCR) | payer OTHER, MEDICARE, SELFPAY | END 2024-09-24 23:59 | disposition home or self-care (01) | LOC: PT 10:00 | PROVIDERS: PCP Family Medicine; Visit Provider Psychiatry & Neurology Neurology | DX: G20.A1 Parkinson's disease without dyskinesia, without mention of fluctuations (principal) | CPT/HCPCS: 97110; 97163; 97530; 97535 ==

== ENCOUNTER 2024-10-22 11:00 | Outpatient (RCR) | payer OTHER, MEDICARE, SELFPAY | END 2024-10-22 23:59 | disposition home or self-care (01) | LOC: PT 11:00 | PROVIDERS: PCP Family Medicine; Visit Provider Psychiatry & Neurology Neurology | DX: G20.A1 Parkinson's disease without dyskinesia, without mention of fluctuations (principal); Z96.659 Presence of unspecified artificial knee joint | CPT/HCPCS: 97112; 97530 ==

== ENCOUNTER 2024-11-24 09:00 | Outpatient (RCR) | payer OTHER, MEDICARE, SELFPAY | END 2024-11-24 23:59 | disposition home or self-care (01) | LOC: PT 09:00 | PROVIDERS: PCP Family Medicine; Visit Provider Psychiatry & Neurology Neurology | DX: G20.A1 Parkinson's disease without dyskinesia, without mention of fluctuations (principal); Z96.659 Presence of unspecified artificial knee joint | CPT/HCPCS: 97112; 97530 ==

== ENCOUNTER 2024-12-01 08:54 | Outpatient (RCR) | payer OTHER, MEDICARE, SELFPAY | END 2024-12-01 23:59 | disposition home or self-care (01) | LOC: PT 08:54 | PROVIDERS: PCP Family Medicine; Visit Provider Psychiatry & Neurology Neurology | DX: G20.A1 Parkinson's disease without dyskinesia, without mention of fluctuations (principal); Z96.653 Presence of artificial knee joint, bilateral; R26.89 Other abnormalities of gait and mobility | CPT/HCPCS: 97112; 97530 ==